=== PATIENT | male | born 1990 | race Caucasian/White ===

== ENCOUNTER → 2016-05-31 | Outpatient (CLI) | payer BC | LOC: MW.CHFP | PROVIDERS: ATTEND Nurse Practitioner Family | DX: Z11.3 Encounter for screening for infections with a predominantly sexual mode of transmission (principal) | CPT/HCPCS: 87491; 87591 ==

== ENCOUNTER 2021-10-26 10:45 | Emergency (ER) | payer OTHER ==
[2021-10-26] MEDS ORDERED: Lidocaine 1% 5 ML VIAL INJECT ONE (15:26)
[2021-10-26] MEDS ORDERED: Octyl 2-Cyanoacrylate 0.5 g/0.5 mL 1 APPLIC TUBE TOP ONE (15:53)
[2021-10-26] MEDS ORDERED: Diphtheria,Pertussis(Acell),Tetanus Vaccine 0.5 ML Syringe IM ONE (15:54)
== END 2021-10-26 16:45 | disposition home or self-care (01) ==
LOC: MW.ED 10:45
DX: S61.210A Laceration without foreign body of right index finger without damage to nail, initial encounter (principal); Z23 Encounter for immunization; Z91.048 Other nonmedicinal substance allergy status; W26.8XXA Contact with other sharp object(s), not elsewhere classified, initial encounter
CPT/HCPCS: 12001; 90471; 90715; 99282; 99282-25

== ENCOUNTER 2024-03-21 05:43 | Emergency (ER) | payer BC ==
[2024-03-21] MEDS: Dexamethasone 4 MG Tab PO ONE (06:54)
[2024-03-21] MEDS: Acetaminophen 500 MG Tab PO ONE (06:54)
== END 2024-03-21 07:58 | disposition home or self-care (01) ==
LOC: MW.ED 05:43
DX: T78.3XXA Angioneurotic edema, initial encounter (principal); Z90.49 Acquired absence of other specified parts of digestive tract; Z88.8 Allergy status to other drugs, medicaments and biological substances
CPT/HCPCS: 87428; 87651; 99283; J8540; A9270-GY